=== PATIENT | male | born 2000 | race African-American/Black ===

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

== ENCOUNTER 2024-01-16 17:10 | Emergency (ER) | payer BC, MEDICAID ==
[~2024-01-16] VITALS: Ht 180.3 cm; Wt 68.2 kg
[2024-01-16 17:18] VITALS: TEMP 97.8
[2024-01-16] MEDS: propofol 10mg/ml 20ml vial IV ONE (19:10)
[2024-01-16] MEDS: ketamine 10mg/ml 20ml inj vial IV ONE (19:10)
[2024-01-16 20:13] VITALS: BP 134/94; PULSE 58; RESP 18; O2SAT 98
== END 2024-01-16 20:14 | disposition home or self-care (01) ==
LOC: ER 17:11
DX: S43.005A Unspecified dislocation of left shoulder joint, initial encounter (principal); X58.XXXA Exposure to other specified factors, initial encounter; Y93.89 Activity, other specified; Y92.89 Other specified places as the place of occurrence of the external cause; Y99.8 Other external cause status
CPT/HCPCS: 23650; 73020; 73030; 99285; J2704; J3490; J7030; A4565